=== PATIENT | male | born 1945 | race Caucasian/White ===

== ENCOUNTER 2018-07-28 11:20 | Day surgery (SDC) | payer OTHER, MEDICARE ==
[2018-07-27 10:51] VITALS: BMI 34.5
[2018-07-28] MEDS ORDERED: ceFAZolin SODIUM 1 GM VIAL ONE (12:11)
[2018-07-28] MEDS ORDERED: ONDANSETRON 4 MG/2 ML VIAL IVPUSH PRN (15:14)
[2018-07-28] MEDS ORDERED: LACTATED RINGERS SOLUTION 1,000 ML IV SCH (15:15)
[2018-07-28] MEDS ORDERED: PROPOFOL 20 ML ONE (15:33)
[2018-07-28] MEDS ORDERED: fentaNYL CITRATE 250 MCG/5 ML VIAL ONE (15:33)
[2018-07-28] MEDS ORDERED: MIDAZOLAM HCL 2 MG/2 ML SINGLE DOSE VIAL ONE (15:33)
[2018-07-28] MEDS ORDERED: ROCURONIUM BROMIDE 50 MG/5 ML VIAL ONE (15:33)
[2018-07-28] MEDS ORDERED: LIDOCAINE HCL/PF 2% SDV 5ML VIAL ONE (15:34)
[2018-07-28] MEDS ORDERED: DEXAMETHASONE SOD PHOSPHATE 4 MG/1 ML VIAL ONE (15:34)
[2018-07-28] MEDS ORDERED: LIDOCAINE 1%/EPI 1:100000 (20 ML MULTI DOSE VIAL) ONE ×2 (16:19→17:33)
[2018-07-28] MEDS ORDERED: ceFAZolin SODIUM 1 GM VIAL IVPB ONE (16:44)
[2018-07-28] MEDS ORDERED: MINERAL OIL/PETROLATUM,WHITE 3.5 GM TUBE ONE (17:14)
[2018-07-28] MEDS ORDERED: ePHEDrine SULFATE 50 MG/1 ML AMPULE ONE ×2 (17:20→18:15)
[2018-07-28] MEDS ORDERED: LIDOCAINE 1%/EPI 1:100000 (20 ML MULTI DOSE VIAL) IJ ONE (17:30)
[2018-07-28] MEDS ORDERED: NITROGLYCERIN 2% OINTMENT - 1GM PACKET TD ONE ×2 (18:45→19:17)
[2018-07-28] MEDS ORDERED: BACITRACIN 15 GM TUBE TOPICAL OINTMENT ONE (19:16)
[2018-07-28] MEDS ORDERED: BACITRACIN 15 GM TUBE TOPICAL OINTMENT TP ONE (19:18)
[2018-07-28] MEDS ORDERED: ACETAMINOPHEN 1000 MG/100 ML VIAL (NON FORMULARY) IVPB ONE (19:40)
[2018-07-28] MEDS ORDERED: ACETAMINOPHEN INJECTION 100 ML IVPB ONE (19:55)
--- NOTE | 2018-07-28 20:17 | OP ---
Operative Note - Note: Operative Date: 07/28/18 Pre-Operative Diagnosis: nasal defect Operation: forehead flap reconstruction of nose Surgeon: Javid Victor Anesthesia: General
[2018-07-28] MEDS ORDERED: ONDANSETRON 4 MG/2 ML VIAL IVPB PRN (20:21)
[2018-07-28] MEDS ORDERED: oxyCODONE HCL 5 MG TABLET PO PRN (20:21)
[2018-07-28] MEDS ORDERED: SODIUM CHLORIDE 0.45% 1,000 ML IV SCH (20:30)
--- NOTE | 2018-07-28 20:31 | PN ---
Progress Note (short form) - Note Progress Note: post op check. Flap viable, no excessive bleeding. Pain is well controlled. Will observe overnight with plan for discharge in morning after seen by PA.
[2018-07-28] MEDS: MORPHINE SULFATE 2 MG/ML VIAL IVPUSH PRN (21:31)
[2018-07-28] MEDS: LOSARTAN POTASSIUM 50 MG TABLET (FP) PO SCH (21:31)
--- NOTE | 2018-07-29 01:04 | OP ---
DATE OF OPERATION: 07/28/2018 TITLE OF PROCEDURE: 1. Forehead flap reconstruction of nasal defect. 2. Excision of nasal defect in preparation for forehead flap reconstruction. 3. Full thickness skin graft from the left groin to the flap on the nose. ATTENDING SURGEON: Javid Victor M.D. BRAND LEAD: None. ANESTHESIA: General endotracheal anesthesia with an additional 13 mL of 1% lidocaine with 1:100,000 epinephrine injected to the nose and forehead and an additional 8 mL of the same mixture injected to the left groin. Patient is counseled on risks, benefits, and alternatives to the procedure, understands and agrees to proceed awake and aware of incisions and resulting scars. DESCRIPTION OF PROCEDURE: Patient is brought to the operating room and placed in a supine position after checked by surgical and anesthesia teams. The pattern for the flap is then dopplered. A more robust supratrochlear artery is able to be identified on the patient's right side, as this is a midline lesion. This is the choice for the flap. The width of the flap is at its tips 3 cm. After injection, the patient is prepped and draped in standard surgical fashion. A timeout was called. Patient, procedure, incision site are verified. At this point, the flap is harvested from distal to proximal. The distal few centimeters of flap are harvested in the subcutaneous plane, transitioned to a submuscular plane at roughly 2 cm cephalad to the orbital rim is transitioned to a subperiosteal plane. Flap is able to be transferred onto the nose without any tension or evidence of congestion or ischemia. While this is done, the forehead is then assessed for closure. The closure is performed after undermining laterally and scoring the and on medially and laterally. Closure is then performed with a series of interrupted buried deep dermal 3-0 Monocryl suture followed by running 5-0 nylon suture at the inferior portion of the closure and interrupted skin jessa at the superior portion of the closure in the scalp. The base of the flap has allowed an opening with no constriction. The flap turned down to the nose. There is no evidence of ischemia or congestion. Given this, decision is made to sacrifice the residuum of the nasal tip skin for inset to the entire flap. Hemostasis is meticulously achieved. The entire ulcer is excised as well as its base. The flap is then trimmed to conform to the defect and is inset with a series of interrupted 5-0 nylon suture. Is pink and viable with good refill and no compromise. The posterior surface of the flap is then prepared for dressing with the skin graft. Skin graft is harvested from the left groin in full thickness fashion. The donor site is irrigated, hemostasis is achieved, it is closed with a series of interrupted buried deep dermal 3-0 Monocryl suture followed by running subcuticular 3-0 Monocryl suture, is dressed with half inch full length Steri-Strips. The graft is pie crusted. It is secured to the borders of the forehead flap with a running 5-0 nylon suture. The base of the flap is dressed with Surgicel. The flap is routinely and prophylactically dressed with nitro paste. Dressing of bacitracin and Xeroform, ABD gauze and then applied. Patient awoken from anesthesia, having tolerated procedure well, transferred to recovery without complication. Ajit [id number]
[2018-07-29] MEDS: MORPHINE SULFATE 2 MG/ML VIAL IVPUSH PRN ×2 (01:27→05:32)
[2018-07-29] MEDS: LOSARTAN POTASSIUM 50 MG TABLET (FP) PO SCH (09:08)
--- NOTE | 2018-07-29 10:30 | PN ---
Progress Note (short form) - Note Progress Note: Surgery POD #1 forehead flap reconstruction of nose patient seen and examined at bedside. Patient c/o headache over night and some bleeding from surgical site. He has been tolerating his diet but had some nausea. He denies any CP, SOB, vomiting, blurred vision or dizziness. Vital Signs Temp 98.6 F 07/29/18 06:26 Pulse 91 H 07/29/18 06:26 Resp 20 07/29/18 06:26 BP 122/66 07/29/18 06:26 Pulse Ox 96 07/28/18 21:21 Intake & Output 07/28/18 07/28/18 07/29/18 11:59 23:59 11:59 Intake Total 1500 800 Output Total 10 325 Balance 1490 475 Weight 195 lb Intake: IV 1300 500 1/2 Normal Saline 1,000 500 ml @ 75 mls/hr IV ASDIR MUKUND Rx#:[id number] Oral 200 300 Output: Urine 325 Void 325 Estimated Blood Loss 10 Other: # Unmeasured Voids Void 250 300 Height 5 ft 3 in Body Mass Index (BMI) 34.5 Weight Measurement Method Estimated by Patient PE: A&Ox3, NAD Unlabored resp on 2L NC Dressing with some areas of saturation and some bleeding seen dripping from the dressing around the nose. 4x4 dressings removed with care not to disrupt the flap. Xeroform and surgicell dressing over flap and scalp incision remained in place. A pool of ss d/c was seen and just adjacent to the nasal labial fold which was the cause of the dripping, after the area was cleaned around the nose - far from the flap- the dripping stopped and there was no evidence of active bleeding. 4x4 reapplied with care and attention to not place compression over the flap. patient stated he felt better after changing the dressing with less pressure and tightness over surgical sites. Problem List - Problems (1) Nasal defect Assessment/Plan: POD #1 forehead flap reconstruction of nose doing well 1) keep dressing clean and dry 2) Keep pressure off flap at all times 3) HOD elevated at all times 4) d/c home today, follow up with Dr Victor as scheduled Evaluation and plan discussed with Dr Victor Code(s): M95.0 - ACQUIRED DEFORMITY OF NOSE
[2018-07-29 11:20] VITALS: BP 118/72; PULSE 87; TEMP 99.2
--- NOTE | 2018-07-30 16:09 | PATH ---
Surgical Pathology Report Patient Name: HOLLAND MOSHER [facility]. Rec. #: [id number] /Age/Gender: 1945 (Age: 72) / M Account: [id number] Location: [facility] SUR[facility]ICAL Taken: 07/28/2018 Received: 07/29/2018 Reported: 07/30/2018 Physicians: Javid Victor Specimen(s) Received ULCER Clinical History Basal cell carcinoma of skin of nose Final Diagnosis SKIN, NOSE, EXCISION: SKIN WITH ULCERATION AND REACTIVE CHANGES CONSISTENT WITH PRIOR BIOPSY. NO MALIGNANCY IDENTIFIED. Electronically Signed Stephanie Valdivia M.D. Gross Description Received in formalin labeled "ulcer," is a 2.7 x 2.0 cm iqbal, ovoid, unoriented portion of skin excised to a depth of 0.3 cm. The epidermal surface displays a 2.4 x 1.7 cm ulcerated lesion with a central defect. The lesion involves one edge of the specimen. The base is inked green and the specimen is serially sectioned. The specimen is entirely and sequentially submitted in 5 cassettes. /07/29/2018 saudi07/29/2018
== END 2018-07-29 10:50 | disposition home or self-care (01) ==
LOC: JASU-SURG 11:20 → J6S 21:21 → JASU-SURG 07-29 10:50
PROVIDERS: ATTEND Plastic Surgery
PROC: 0HB0XZZ Excision of Scalp Skin, External Approach (ICD-10-PCS; 2018-07-28)
PROC: 0JX10ZB Transfer Face Subcutaneous Tissue and Fascia with Skin and Subcutaneous Tissue, Open Approach (ICD-10-PCS; 2018-07-28)
PROC: 0HR1X73 Replacement of Face Skin with Autologous Tissue Substitute, Full Thickness, External Approach (ICD-10-PCS; principal; 2018-07-28 13:00)
DX: C44.311 Basal cell carcinoma of skin of nose (principal)
CPT/HCPCS: 88305-TC; 94760; J0131

== ENCOUNTER 2018-08-26 10:18 | Day surgery (SDC) | payer OTHER, MEDICARE ==
[2018-08-17 15:09] VITALS: BMI 34.5
[2018-08-26] MEDS ORDERED: MIDAZOLAM HCL 2 MG/2 ML SINGLE DOSE VIAL ONE (12:07)
[2018-08-26] MEDS ORDERED: LIDOCAINE HCL/PF 2% SDV 5ML VIAL ONE (12:07)
[2018-08-26] MEDS ORDERED: ROCURONIUM BROMIDE 50 MG/5 ML VIAL ONE (12:07)
[2018-08-26] MEDS ORDERED: fentaNYL CITRATE 250 MCG/5 ML VIAL ONE (12:07)
[2018-08-26] MEDS ORDERED: PROPOFOL 20 ML ONE (12:07)
[2018-08-26] MEDS ORDERED: SUCCINYLCHOLINE CHLORIDE 200 MG/10 ML VIAL ONE (12:07)
[2018-08-26] MEDS ORDERED: DESFLURANE GAS 240 ML BOTTLE IH ONE (12:11)
[2018-08-26] MEDS ORDERED: LIDOCAINE 1%/EPI 1:100000 (20 ML MULTI DOSE VIAL) ONE (12:15)
[2018-08-26] MEDS ORDERED: NITROGLYCERIN 2% OINTMENT - 1GM PACKET TD ONE (12:34)
[2018-08-26] MEDS ORDERED: BACITRACIN 15 GM TUBE TOPICAL OINTMENT ONE (12:34)
[2018-08-26] MEDS ORDERED: ceFAZolin SODIUM 1 GM VIAL ONE (12:41)
[2018-08-26] MEDS ORDERED: oxyCODONE HCL 5 MG TABLET PO PRN ×3 (13:18→14:35)
[2018-08-26] MEDS ORDERED: ONDANSETRON 4 MG/2 ML VIAL IVPUSH PRN (13:18)
[2018-08-26] MEDS ORDERED: LACTATED RINGERS SOLUTION 1,000 ML IV SCH ×2 (13:30→14:45)
[2018-08-26] MEDS ORDERED: ONDANSETRON 4 MG/2 ML VIAL IVPB PRN (14:35)
[2018-08-26 15:22] VITALS: TEMP 98.1
[2018-08-26] MEDS ORDERED: oxyCODONE HCL 5 MG TABLET ONE (15:32)
[2018-08-26 16:22] VITALS: BP 109/69; PULSE 63
--- NOTE | 2018-08-27 09:27 | OP ---
DATE OF OPERATION: 08/26/2018 TITLE OF PROCEDURE: Division and inset of forehead flap, nasal reconstruction. PREOPERATIVE DIAGNOSIS: Nasal defect from basal cell carcinoma. POSTOPERATIVE DIAGNOSIS: Nasal defect from basal cell carcinoma. ATTENDING SURGEON: Javid Victor MD SHUCKER: No assistants. ANESTHESIA: General endotracheal anesthesia with an additional 8 mL of 1% lidocaine with 1:100,000 epinephrine. PROCEDURE FOLLOWS: Patient was marked in the holding area, awake and aware of all incisions and resulting scars. Risks, benefits, and alternatives to the procedure were discussed at length. Patient understands and agrees to proceed. The patient was brought to the operating room and placed in a supine position. Position was carefully checked by surgical and anesthesia teams. After anesthesia was given, he was injected to the perioperative tissues with 8 mL of 1% lidocaine and 1:100,000 epinephrine. He was prepped and draped in standard surgical fashion. A time-out was called. Patient, procedure, side and sites were verified. At this point, a position at the cephalad third of the forehead flap was marked and divided. The proximal end of the flap on the forehead was then unfurled. The posterior aspect of the flap was excised leaving a flap of skin and subcutaneous tissue, which can be unfurled and inset into the residual defect on the forehead. There is adequate flap for debriding of the edges of the forehead defect undermining slightly for an even closure. A series of interrupted 4-0 Monocryl sutures were used within the muscle and deep tissue to re-inset the proximal portion of the flap. The skin was then secured with a combination of running and interrupted 6-0 nylon suture. At this point, attention was directed towards the distal end of the flap, which was now attached to the nose and being perfused by its distal attachment to the nasal tip. The flap appears to be pink and viable to its cut edge. The flap was thinned. The posterior skin graft on the flap was excised. This was done in a piecemeal fashion showing that there was good vascularity to the new distal edge of the flap as was achieved throughout the entirety of the thinning process, which was able to be done removing all muscle and fascia, leaving a flap of only skin and fat. Once it was assured that the flap was well vascularized to its most distal extent, the planned tissue for sacrifice on the nose was then excised. This was the nasal dorsal subunit up to the radix. Hemostasis was achieved. The flap was then trimmed to conform to the defect and was inset with a single layer of 5-0 nylon sutures with a series of interrupted 6-0 nylon suture. Adequate space was left for drainage at the radix as well in the more inferior portion. The flap was pink and viable at this point. It was treated standardly with nitro paste to it. Bacitracin and Xeroform to the remainder of the tissues. A compressive dressing was placed on the forehead, and Xeroform and light gauze was placed on the flap. Patient was awoken from anesthesia having tolerated the procedure well, transferred to recovery without complications. Ajit [id number]
--- NOTE | 2018-09-01 15:17 | PATH ---
Surgical Pathology Report Patient Name: HOLLAND MOSHER Med. Rec. #: [id number] /Age/Gender: 1945 (Age: 72) / M Account: [id number] Location: [facility] Taken: 08/26/2018 Received: 08/26/2018 Reported: 09/01/2018 Physicians: Javid Victor Specimen(s) Received A: FOREHEAD LESION B: NASAL FLAP Clinical History Skin cancer Final Diagnosis A. FOREHEAD, LESION, EXCISION: SEBORRHEIC KERATOSIS. B. NASAL FLAP, RECONSTRUCTION: SKIN SHOWING ULCER AND SCAR WITH SUTURE GRANULOMAS. Electronically Signed Zahira Potts M.D. Gross Description A. Received in formalin labeled "forehead lesion," is a 1.0 x 0.9 cm iqbal skin shave. The base is inked in green and the specimen is trisected and entirely submitted in one cassette. B. Received in formalin labeled "nasal flap," is a 4.0 x 2.3 cm iqbal, irregular portion of skin excised to a depth of 0.9 cm. The epidermal surface displays a 2.5 x 1.8 cm rubio-black lesion. The lesion is 0.3 cm from the closest radial margin. The base is inked green and the specimen is serially sectioned. Die Reamer sections are submitted in 4 cassettes. /08/27/2018 saudi08/27/2018
== END 2018-08-26 16:22 | disposition home or self-care (01) ==
LOC: FASU 10:18
PROVIDERS: ATTEND Plastic Surgery
PROC: 0H81XZZ Division of Face Skin, External Approach (ICD-10-PCS; principal; 2018-08-26 12:52)
DX: C44.311 Basal cell carcinoma of skin of nose (principal)
CPT/HCPCS: 88304-TC; 94760